=== PATIENT | female | born 2000 | race Caucasian/White ===

== ENCOUNTER 2022-03-13 08:12 | Day surgery (SDC) | payer BC ==
[~2022-03-13] VITALS: Ht 167.6 cm; Wt 82.6 kg
[~2022-03-13 08:12] MED LIST: IBUP400 PO; TYLENOL
--- NOTE | 2022-03-13 11:12 | NUR ---
1109-RADIOLOGIST CONFIRMED PORT PLACEMENT
--- NOTE | 2022-03-13 11:51 | NUR ---
PT UP TO RESTROOM WITH SBA; UNMEASURED VOID.
--- NOTE | 2022-03-13 12:01 | NUR ---
Discharge instructions reviewed with patient. Patient verbalizes understanding. Copy given to patient to take home. Discharged via wheelchair to private car for ride home.
== END 2022-03-13 12:05 | disposition home or self-care (01) ==
LOC: ORSCMMR 08:12
PROVIDERS: Surgery
PROC: 05HM33Z Insertion of Infusion Device into Right Internal Jugular Vein, Percutaneous Approach (ICD-10-PCS; principal; 2022-03-13 09:30)
PROC: 0JHD0WZ Insertion of Totally Implantable Vascular Access Device into Right Upper Arm Subcutaneous Tissue and Fascia, Open Approach (ICD-10-PCS; principal; 2022-03-13 09:30)
PROC: B543ZZA Ultrasonography of Right Jugular Veins, Guidance (ICD-10-PCS; principal; 2022-03-13 09:30)
DX: C20 Malignant neoplasm of rectum (principal); I10 Essential (primary) hypertension; F17.290 Nicotine dependence, other tobacco product, uncomplicated
CPT/HCPCS: 77001; A9270; C1788; J0690; J1100; J1642; J2250; J2370; J2405; J2704; J3010; J7120

== ENCOUNTER → 2022-04-10 | Outpatient (CLI) | payer BC | LOC: LAB SHORT 12:00 → LAB 12:00 | DX: C20 Malignant neoplasm of rectum (principal) | CPT/HCPCS: 88342 ==

== ENCOUNTER 2022-05-19 15:40 | Day surgery (SDC) | payer BC | END 2022-05-19 22:41 | disposition home or self-care (01) | LOC: RAD 15:40 | DX: C20 Malignant neoplasm of rectum (principal) | CPT/HCPCS: 36598 ==

== ENCOUNTER → 2022-09-29 | Outpatient (CLI) | payer BC ==
[2022-09-29 17:33] LABS: Appearance, Urine Clear (Clear); Blood, Urine Neg (Neg); Color, Urine Amber (P-Yellow); Glucose Qualitative, Urine Neg (Neg); Ketones, Urine Neg (Neg); Leukocyte Esterase, Urine 1+ (Neg); Nitrite, Urine Pos (Neg); Protein, Urine 2+ (Neg); Specific Gravity, Urine 1.015 (1.003-1.022); Urobilinogen, Urine 2+ (Normal)
[2022-09-29 18:04] LABS: Bilirubin, Urine 2+ (Neg)
[2022-09-29 18:05] LABS: Bacteria Mod /hpf; Red Blood Cells, Urine 0-2 /hpf (0-2); Squamous Epithelial Cells Few /hpf (Few)
== END ==
LOC: LAB 15:32 → LAB SHORT 15:32
PROVIDERS: Surgery
DX: Z51.0 Encounter for antineoplastic radiation therapy (principal); C20 Malignant neoplasm of rectum
CPT/HCPCS: 81001; 87086

== ENCOUNTER → 2022-10-15 | Outpatient (CLI) | payer BC ==
[2022-10-16 07:58] LABS: Candida species (DNA Probe) Negative (NEGATIVE); G. vaginalis (DNA Probe) Negative (NEGATIVE); T. vaginalis (DNA Probe) Negative (NEGATIVE)
== END ==
LOC: LAB 14:30 → LAB SHORT 14:30
PROVIDERS: Family Medicine
DX: N39.0 Urinary tract infection, site not specified (principal); N89.8 Other specified noninflammatory disorders of vagina
CPT/HCPCS: 87086; 87147; 87480; 87510; 87660

== ENCOUNTER → 2022-12-02 | Outpatient (CLI) | payer BC | END | disposition home or self-care (01) | LOC: LAB SHORT 11:37 → LAB 11:37 | DX: N89.8 Other specified noninflammatory disorders of vagina (principal) | CPT/HCPCS: 87070; 87147; 87205 ==

== ENCOUNTER → 2023-06-09 | Outpatient (CLI) | payer BC ==
[~2023-06-09] MED LIST changes: +IBUP800 PO; +OXYC5 PO
[2023-06-09 19:57] LABS: Bacterial Vaginosis PCR Negative (NEGATIVE); Candida Group, PCR NOT DETECTED (NOT DETECT); Candida glabrata-krusei, PCR NOT DETECTED (NOT DETECT)
== END | disposition home or self-care (01) ==
LOC: LAB 17:04 → LAB SHORT 17:04
PROVIDERS: Obstetrics & Gynecology
DX: N89.8 Other specified noninflammatory disorders of vagina (principal)
CPT/HCPCS: 87481; 87661; 87801